=== PATIENT | female | born 1990 | race Two or more races ===

== ENCOUNTER 2016-07-03 02:25 | Inpatient (IN) | payer OTHER ==
[2016-07-03 02:46] VITALS: BP 122/70
[2016-07-03] MEDS ORDERED: Maalox 30 mL Cup PO PRN (03:34)
[2016-07-03] MEDS ORDERED: Magnesium Hydroxide (MOM) 30 mL UDC PO PRN (03:34)
[2016-07-03 04:05] LABS: % BASOPHILS 0.6 % (0.0-2.0); % EOSINOPHILS 0.8 % (0.0-5.0); % LYMPHOCYTES 27.2 % (20.0-50.0); % MONOCYTES 6.8 % (2.0-10.0); % NEUTROPHILS 64.6 % (40.0-80.0); HEMATOCRIT 37.3 % (35.0-45.0); MEAN CELL VOLUME 80.8 fl (81-100); MEAN CORPUSCULAR HEMOGLOBIN 28.1 pg (27.0-31.0); MEAN CORPUSCULAR HGB CONC 34.8 pg (28.0-36.0); MEAN PLATELET VOLUME 8.3 fl; NEUTROPHILE ABSOLUTE 5.6 Th/cmm (1.8-8.0); PLATELET COUNT 198 Th/cmm (150-400); RED BLOOD COUNT 4.61 Mil/cmm (3.80-5.10); RED CELL DISTRIBUTION WIDTH 12.9 % (11.5-20.0); WHITE BLOOD COUNT 8.8 Th/cmm (4.8-10.8)
[2016-07-03 04:27] LABS: ALB/GLOB RATIO 1.4 (1.0-1.8); ALKALINE PHOSPHATASE 46 U/L (34-104); ANION GAP 7.9 (7.0-16.0); BILIRUBIN,TOTAL 0.6 mg/dL (0.3-1.0); BUN - UREA NITROGEN 9 mg/dL (7-25); BUN/CREATININE RATIO 12.9; CALCIUM SERUM 8.8 mg/dL (8.6-10.3); CARBON DIOXIDE 24.4 mEq/L (21.0-31.0); CHLORIDE 102 mEq/L (98-107); CREATININE - SERUM 0.7 mg/dL (0.6-1.2); GLUCOSE 98 mg/dL (70-105); POTASSIUM SERUM 3.3 mEq/L (3.5-5.1); SGOT 14 U/L (13-39); SGPT/ALT 13 U/L (7-52); SODIUM SERUM 131 mEq/L (136-145)
[2016-07-03] MEDS ORDERED: Hydrocodone/APAP 5mg/325mg Tab PO PRN (06:35)
[2016-07-03] MEDS ORDERED: Potassium Chloride 20 mEq ER Tab PO ONE (11:29)
[2016-07-03] MEDS: Sodium Chloride 0.9% 1,000 ML IV SCH (13:01)
--- NOTE | 2016-07-03 15:30 | Diagnostic Imaging Report ---
Carotid ultrasound HISTORY: CVA COMPARISON: None Technique: Longitudinal and transverse sonographic sector images of the carotid arteries were obtained with doppler analysis. FINDINGS: Exam of the right side demonstrates intimal thickening and mild to moderate generalized atherosclerotic vascular disease. There is elevated velocity of the right ECA is 155 cm/second. Exam of the left side demonstrates intimal thickening and mild to moderate degenerative atherosclerotic vascular disease. There is increased velocity in the proximal CCA at 74 cm/second. The velocity ratios are within normal limits. Antegrade vertebral artery flow is demonstrated bilaterally. IMPRESSION: Mild to moderate generalized atherosclerotic vascular disease. Increased velocity of the left proximal CCA is likely related to technical factors. Otherwise no evidence of any significant vessel stenosis.
--- NOTE | 2016-07-03 19:34 | Cardiology ---
ECHOCARDIOGRAM REFERRING PHYSICIAN: Dr. Segundo Coppola M-MODE MEASUREMENTS: Aortic root dimension end-diastole is 2.8 cm. Aortic valve systolic stiffness is 1.9 cm. Left atrial dimension end systole is 3.5 cm. The EP septal separation is 0.7 cm. Left ventricular dimension end diastole is 5.6 cm and end-systole is 4.0 cm. Intraventricular septal thickness end diastole is 0.87 and LV posterior wall thickness end diastole is 0.83 cm. Left ventricular systolic ejection fraction is about 50% to 55%. Carotid Doppler shows all the valves are normal in motion end diastole as well as end systole and there is trace of tricuspid regurgitation present otherwise the other valves are normal in function end diastole as well as end systole. The Doppler measurements are the tricuspid valve Vmax is 1.89 m/sec and aortic valve Vmax is 1.36 m/sec and aortic valve pressure gradient is 7.4 mmHg. Aortic valve calculated is 2.06 cm2. Right ventricular systolic pressure is 27.5 mmHg. The Doppler and carotid Doppler show there is mild tricuspid regurgitation, otherwise other valves are normal in motion end diastole as well as end systole. M-mode shows that all the chambers are normal in dimension. All the valves are normal in thickness and motion end diastole as well as end systole. CONCLUSION: 1. LV dimension and second wall motion are normal with ejection fraction of 50% to 55%. 2. Mild tricuspid regurgitation present and slightly elevated pulmonary arterial pressure. 3. LV dimension and second wall motion are normal with ejection fraction of 55%. 4. Otherwise normal study for the age. [facility]# [id number]
--- NOTE | 2016-07-04 00:28 | History & Physical ---
CHIEF COMPLAINT: Facial numbness and speech disturbance. HISTORY OF PRESENT ILLNESS: The patient is a 26-year-old female who is currently 9 weeks' . The patient states that she went to the [facility] ER for headache and nose numbness, left facial, and left lower extremity. The patient denies any prior episodes of numbness in the past. The patient does have a history of migraine headaches. SOCIAL HISTORY: No reports of smoking, drinking, or drug abuse. PAST MEDICAL HISTORY: Intrauterine and migraine headaches. MEDICATIONS: See medication reconciliation form. ALLERGIES: No known allergies. PHYSICAL EXAMINATION: GENERAL: The patient is awake, alert, nontoxic in appearance. VITAL SIGNS: On admission, temperature 98.4, pulse 82, blood pressure 122/70, respiration rate 20, and O2 of 98% on room air. HEENT: Normocephalic and atraumatic. Extraocular movements intact. Oropharynx is clear. NECK: Supple. No thyromegaly. No fall. CARDIOVASCULAR: S1, S2. No murmurs or gallops. RESPIRATORY: Clear. No wheeze or rhonchi. GASTROENTEROLOGY: Soft, nontender, and nondistended. Positive bowel sounds. GENITOURINARY: No significant suprapubic tenderness. BACK: No midline tenderness. SKIN: Negative. PSYCHIATRIC: Negative. NEUROLOGIC: Cranial nerves intact. Extraocular muscles are intact. Sensation intact. Neurovascular intact. Bilateral muscle strength grossly normal. RADIOLOGY: The patient had a CAT scan done at [facility] which showed no acute intracranial hemorrhage or mass identified. LABORATORY DATA: On admission are as follows: Hematology: WBC 8.8, hemoglobin 13.0, hematocrit 37.3 and, platelet count of 198. Chemistry: Sodium 131, potassium 3.3, chloride 102, bicarbonate 24, anion gap 7.9, BUN 9, and creatinine 0.7. GFR is more than 60, glucose 98, calcium 8.8, total bilirubin 0.6, AST 14, ALT 13, alkaline phosphatase of 46, creatinine per labs. Troponin less than 0.01. Total protein 6.1, albumin 3.5, and globulin 2.6. Urine test is positive. IMPRESSION: 1. Numbness. 2. Speech disturbance. 3. Migraine headache. 4. Possible transient ischemic attack versus cerebrovascular accident. 5. Intrauterine . PLAN: The patient was admitted to telemetry unit and seen by Dr. Ana Coppola. Cardiology consultation with Dr. Lyly Coppola. Neurology consultation with Dr. Harris. We will obtain further labs and consultation as needed. JOB# [id number]
[2016-07-04] MEDS: Sodium Chloride 0.9% 1,000 ML IV SCH ×2 (01:02→13:13)
--- NOTE | 2016-07-04 02:14 | Consultation ---
HISTORY OF PRESENT ILLNESS: This patient was seen at the courtesy of Dr. Segundo Coppola. This patient is coming with the possible TIA versus the other. 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 At the same time, she felt weak in the left arm and the leg and some numbness in the left upper arm. She went to [facility] was done. It shows everything was within normal range, but because of this patient's presentation and possibility of the CVA versus TIA or migraine episode to be evaluated, so the patient was transferred for further evaluation here. The patient's cardiac problems are none. No history of hypertension or cardiac murmur, never been told to have any cardiac problem in the past. Other medical problem in the past is migraine headache as mentioned above. ALLERGIES: None known. REVIEW OF SYSTEMS: Nothing contributory from cardiac point of view except as mentioned above. PHYSICAL EXAMINATION: GENERAL: The patient is 26-year-old female, fully alert, oriented, not in acute distress. There is no more numbness or weakness in any part of the body now by the time I have seen her. VITAL SIGNS: Temperature is 98.4, pulse is 68 to 99 range, blood pressure 143/79, heart rate was 116/69, O2 sat is 100% on room air, and respiratory rate is 19. HEENT: Normal. NECK: Supple. JVP is flat. No lymphadenopathy. CHEST: Equal bilaterally. No chest wall tenderness. LUNGS: Clinically clear. CARDIOVASCULAR: PMI not palpable. Heart sounds are normal. No gallop or murmur. No systolic click was appreciated. EXTREMITIES: No edema. No cyanosis. No clubbing. Peripheral pulses are equal bilaterally 2+. NEUROLOGIC: No neurologic deficits. The echocardiogram was done and was evaluated and is within normal limits for the age. No evidence of mitral valve prolapse or valve dysfunction. No echogenic stricture suggestive of clot or thrombus. EKG shows normal sinus rhythm, normal EKG. Other lab work is showing CBC is normal. Chem-7 is normal except the potassium of 3.3, which has been supplemented. Troponin is normal. Hepatic function is normal. Urine test is positive. She is 9 weeks . IMPRESSION: 1. Transient ischemic attack versus migraine episode with neurologic manifestation. 2. No echogenic evidence of any other etiology. No evidence of mitral valve disorder or other structural disorder. 3. No active cardiac problem. PLAN: 1. Correct electrolytes. 2. Monitor heart rate and blood pressure. 3. Increase activity. 4. There is no indication for any cardiac intervention or therapy. 5. The patient is 9 weeks' , try to avoid any other medications unless very necessary. From cardiac point of view, there is no indication to start any medications at this time. Thank you very much, Dr. Segundo Coppola, for your kind referral and I will follow as needed from cardiac point of view or as needed. JOB# [id number] SARA
--- NOTE | 2016-07-04 03:19 | Admit Criteria Form ---
Admit Criteria Forms - Admit Criteria Diagnosis: TELEMETRY CARE Telemetry Admission Guidelines (Place 'X' for any and all applicable criteria): Admission to telemetry [A] may be indicated for ANY ONE of the following(1)(2)(3 )(4)(5): [ ]I. Cardiac disease, including ANY ONE of the following (9)(10)(11)(12)(13 ): [ ]a) Postacute OH [ ]b) Low-risk patients with ST-segment elevation OH who have undergone successful percutaneous coronary intervention [ ]c) Unstable angina [ ]d) Suspected OH (until it is ruled out) [ ]e) Post cardiac surgery (first 48 to 72 hours unless complications occur) [ ]f) Acute arrhythmias (including significant tachycardia or bradycardia) [B] [ ]g) Firing of an implantable cardioverter defibrillator [C] [ ]h) Suspected pacemaker or implantable cardioverter defibrillator malfunction (10) [ ]i) New administration or adjustment of an antiarrhythmic drug [D ] [ ]j) Child admitted for acute congestive heart failure [ ]j) Long QT syndrome [ ]k) Advanced heart block (eg, second-degree Mobitz type II, third- degree heart block) [ ]l) Acute myocarditis or pericarditis [ ]m) Short-term (ambulatory or inpatient) monitoring after a cardiac procedure as indicated by ANY ONE of the following [E]: [ ]i) Electrophysiologic studies [ ]ii) Percutaneous coronary intervention with stent placement [ ]iii) Pacemaker placement with cardiac conduction defect [ ]iv) Implantable cardiac defibrillator placement [ ]II. Drug overdose or poisoning with substance that causes arrhythmias or QT prolongation (eg, phenothiazines, sympathomimetic agents, cyclic antidepressants, digitalis, antiarrhythmic drugs)(15) [ ]III. Short-term (ambulatory or inpatient) monitoring after therapeutic or diagnostic procedure requiring conscious sedation or anesthesia (eg, endoscopy, elective cardioversion) [x ]IV. Acute cerebrovascular even[F](18) [ ]V. Massive blood transfusion (eg, at least 10 units of packed red blood cells in 24 hours) [ ]. Variceal bleeding after endoscopy, sclerotherapy, or IV vasopressin [ ]VII. Uncorrected electrolyte abnormalities associated with an increased risk of dangerous arrhythmia [G]; examples include [ ]a) Hyperkalemia with attributable ECG changes [ ]b) Potassium greater than 6.5 mmol/L (mEq/L) in a patient without history of chronic renal disease [ ]c) Prolonged QT attributed to hypokalemia, hypomagnesemia, or hypocalcemia [ ]VIII.Unexplained syncope or other neurologic event suspected of being due to arrhythmia due to a finding that increases risk; examples include(19)(20)(21): [ ]a) High-risk ECG findings (eg, bifascicular block, bradycardia, abnormal QT interval, ventricular pre- excitation) [ ]b) History of previous syncope due to arrhythmia [ ]c) Abnormal ventricular function (eg, reduced ejection fraction ) [ ]d) Exertional or supine syncope [ ]e) Concerning syncope characteristics (eg, sudden loss of consciousness without prodrome) [ ]f) Family history of sudden [ ]g) Use of arrhythmogenic medication [ ]h) Suspected cardiac ischemia [ ]i) Known channelopathy (eg, long QT syndrome, Brugada syndrome, or catecholaminergic paroxysmal ventricular tachycardia) [ ]j) Known structural heart disease (eg, hypertrophic cardiomyopathy , severe valvular disease) [ ]k) Palpitations preceding syncope The original [employer] content created by [employer] has been revised. The portions of the content which have been revised are identified through the use of italic text or in bold, and [facility] has neither reviewed nor approved the modified material. All other unmodified content is copyright [employer]. Please see references footnoted in the original [employer] edition 2016 Admit Criteria Met?: Yes
[2016-07-04 07:30] LABS: % EOSINOPHILS 0.9 % (0.0-5.0); % LYMPHOCYTES 29.7 % (20.0-50.0); % MONOCYTES 7.1 % (2.0-10.0); % NEUTROPHILS 62.3 % (40.0-80.0); HEMATOCRIT 38.2 % (35.0-45.0); HEMOGLOBIN 13.1 gm/dL (11.7-15.5); MEAN CELL VOLUME 81.8 fl (81-100); MEAN CORPUSCULAR HEMOGLOBIN 27.9 pg (27.0-31.0); MEAN CORPUSCULAR HGB CONC 34.2 pg (28.0-36.0); MEAN PLATELET VOLUME 8.2 fl; PLATELET COUNT 183 Th/cmm (150-400); RED BLOOD COUNT 4.68 Mil/cmm (3.80-5.10); RED CELL DISTRIBUTION WIDTH 12.9 % (11.5-20.0)
[2016-07-04 07:33] LABS: ANION GAP 8.5 (7.0-16.0); BUN - UREA NITROGEN 8 mg/dL (7-25); BUN/CREATININE RATIO 11.4; CALCIUM SERUM 8.8 mg/dL (8.6-10.3); CARBON DIOXIDE 25.2 mEq/L (21.0-31.0); CHLORIDE 105 mEq/L (98-107); CREATININE - SERUM 0.7 mg/dL (0.6-1.2); GLUCOSE 89 mg/dL (70-105); POTASSIUM SERUM 3.7 mEq/L (3.5-5.1); SODIUM SERUM 135 mEq/L (136-145)
[2016-07-04 08:15] LABS: WHITE BLOOD COUNT 6.5 Th/cmm (4.8-10.8)
[2016-07-05] MEDS: Sodium Chloride 0.9% 1,000 ML IV SCH ×2 (00:14→10:16)
[2016-07-05 06:47] LABS: % BASOPHILS 0.3 % (0.0-2.0); % EOSINOPHILS 0.8 % (0.0-5.0); % LYMPHOCYTES 28.8 % (20.0-50.0); % MONOCYTES 7.6 % (2.0-10.0); % NEUTROPHILS 62.5 % (40.0-80.0); HEMATOCRIT 37.1 % (35.0-45.0); HEMOGLOBIN 12.9 gm/dL (11.7-15.5); MEAN CELL VOLUME 82.2 fl (81-100); MEAN CORPUSCULAR HEMOGLOBIN 28.5 pg (27.0-31.0); MEAN CORPUSCULAR HGB CONC 34.7 pg (28.0-36.0); MEAN PLATELET VOLUME 8.4 fl; NEUTROPHILE ABSOLUTE 4.2 Th/cmm (1.8-8.0); PLATELET COUNT 181 Th/cmm (150-400); RED BLOOD COUNT 4.52 Mil/cmm (3.80-5.10); RED CELL DISTRIBUTION WIDTH 13.1 % (11.5-20.0); WHITE BLOOD COUNT 6.8 Th/cmm (4.8-10.8)
[2016-07-05 07:07] LABS: ANION GAP 7.9 (7.0-16.0); BUN - UREA NITROGEN 9 mg/dL (7-25); CALCIUM SERUM 8.7 mg/dL (8.6-10.3); CARBON DIOXIDE 23.7 mEq/L (21.0-31.0); CHLORIDE 106 mEq/L (98-107); CREATININE - SERUM 0.6 mg/dL (0.6-1.2); GLUCOSE 91 mg/dL (70-105); POTASSIUM SERUM 3.6 mEq/L (3.5-5.1); SODIUM SERUM 134 mEq/L (136-145)
--- NOTE | 2016-07-05 10:47 | Progress Notes ---
SUBJECTIVE: The patient is awake, alert. The patient has no acute complaints. The patient is on IV fluids. The patient is awaiting Neurology consultation. OBJECTIVE: VITAL SIGNS: Temperature 98.3, pulse 78, blood pressure ____/64, respirations 18, O2 sat 100% on room air. CARDIOVASCULAR: S1, S2. RESPIRATORY: Clear. GASTROINTESTINAL: Soft, positive bowel sounds. LABORATORY DATA: Hematology, WBC 6.5, hemoglobin 13.1, hematocrit 38.2, platelet count of 183, no left shift. Chemistry, sodium 135, potassium ____, chloride 105, bicarbonate 25, anion gap 8.5, BUN 8, creatinine 0.7. GFR is more than 60. Glucose is 89, calcium is 8.8. MICROBIOLOGY: MRSA screening from July 03 negative. RADIOLOGY: No results. ASSESSMENT: 1. Numbness, resolved. 2. Speech disturbance, resolved. 3. Migraine headache. 3. Possible transient ischemic attack versus cerebrovascular accident. 4. Intrauterine . PLAN: Continue current medications and treatment. Obtain labs. 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 Also, awaiting neurological consultation. JOB# [id number] SARA
--- NOTE | 2016-07-06 02:52 | Progress Notes ---
SUBJECTIVE: The patient is awake and alert. The patient denies any chest pain, shortness of breath, headache, or orthopnea. OBJECTIVE: VITAL SIGNS: Temperature 98.2, pulse 78, blood pressure 126/63, respiratory rate 18, and O2 sat is 100% on room air. CARDIAVASCULAR: S1 and S2. RESPIRATORY: Clear. GASTROINTESTINAL: Soft. Positive bowel sounds. LABORATORY DATA: Hematology: WBC 6.8, hemoglobin per labs, hematocrit per labs , platelet count of 181,000, no left shift noted. Chemistry: Sodium 134, potassium 3.6, chloride 106, bicarb 23, anion gap 7.9. BUN 9 and creatinine 0.6. GFR is more than 60. Glucose is 91. Calcium 8.7. ASSESSMENT: 1. Chest pain (resolved) atypical secondary to myalgia. 2. Numbness (resolved). 3. Speech disturbance (resolved). 4. Migraine headache. 5. Intrauterine . PLAN: Continue current medication and treatment. 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 JOB# [id number] MTDD
--- NOTE | 2016-07-19 22:03 | Discharge Summary ---
DISCHARGE DIAGNOSES: 1. Chest pain (resolved). 2. Acute coronary syndrome ruled out. 3. Chest pain, atypical secondary to myalgia. 4. Numbness (resolved). 5. Speech disturbance (resolved). 6. Migraine headache. 7. Intrauterine . HOSPITAL COURSE: The patient is a 26-year-old female who initially presented to [facility]. The patient was transferred from [facility] to [facility]. The patient was admitted with diagnosis of numbness, speech disturbance, migraine headaches, possible TIA versus CVA, and intrauterine . The patient was admitted to Telemetry Unit. CONSULTATION OBTAINED: Cardiology consultation obtained from Dr. Lyly Coppola. The patient had an echocardiogram done with Dr. Lyly Coppola. Findings of the echocardiogram showed left ventricular dimension, wall motion normal, ejection fraction 50%-55%, mild tricuspid regurgitation present, slightly elevated pulmonary arterial pressure, and left ventricular dimension and wall motion normal with ejection fraction of 55%. The patient had BLE arterial ultrasound done, which showed [id number] atherosclerotic vascular changes and increased velocity, with no significant vascular stenosis noted. During hospital course, the patient's chest pain resolved. The patient's numbness resolved. The patient's speech disturbance resolved. The patient was discharged home on 07/05/2016. [facility]# [id number] SARA
== END 2016-07-05 15:50 | disposition home or self-care (01) | DRG 781 ==
LOC: TELE 02:25
PROVIDERS: ADMIT Preventive Medicine Preventive Medicine/Occupational Environmental Medicine; ATTEND Preventive Medicine Preventive Medicine/Occupational Environmental Medicine
DX: O99.411 Diseases of the circulatory system complicating pregnancy, first trimester (principal); I63.9 Cerebral infarction, unspecified; O26.891 Other specified pregnancy related conditions, first trimester; G43.909 Migraine, unspecified, not intractable, without status migrainosus; Z3A.09 9 weeks gestation of pregnancy
CPT/HCPCS: 36415-UA; 80048-TC; 80053-TC; 81025-TC; 82550-TC; 82948-90; 84484-TC; 85025-TC; 93005; 93880-TC; J7030; X3401; Z7610